=== PATIENT | female | born 2000 | race American Indian/Alaskan Native ===

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

== ENCOUNTER 2019-10-30 15:14 | Outpatient (CLI) | payer OTHER ==
[2019-10-30] MEDS ORDERED: LACTATED RINGERS 1,000 ML ONE (15:45)
== END 2019-10-30 16:37 | disposition home or self-care (01) ==
LOC: TRG 15:14
PROVIDERS: ATTEND Obstetrics & Gynecology
DX: O21.2 Late vomiting of pregnancy (principal); O26.893 Other specified pregnancy related conditions, third trimester; R10.9 Unspecified abdominal pain; R19.7 Diarrhea, unspecified; M54.9 Dorsalgia, unspecified; O47.1 False labor at or after 37 completed weeks of gestation; Z3A.38 38 weeks gestation of pregnancy
CPT/HCPCS: 59025; J7120; 96360

== ENCOUNTER 2021-12-13 20:41 | Emergency (ER) | payer SELFPAY | END 2021-12-13 23:11 | disposition left against medical advice (07) | LOC: ED 20:41 | DX: Z53.21 Procedure and treatment not carried out due to patient leaving prior to being seen by health care provider (principal) ==